=== PATIENT | male | born 1945 | race Caucasian/White ===

== ENCOUNTER → 2016-08-30 | Outpatient (CLI) | payer OTHER ==
[~2016-08-30] MED LIST: CHOL100010 PO; DOXY100C76 PO
== END | disposition home or self-care (01) ==
LOC: C.LABBC 14:39
PROVIDERS: ATTEND Family Medicine
DX: Z11.59 Encounter for screening for other viral diseases (principal); N40.1 Benign prostatic hyperplasia with lower urinary tract symptoms

== ENCOUNTER → 2017-01-11 | Outpatient (CLI) | payer OTHER | END | disposition home or self-care (01) | LOC: C.PATHSPEC 16:56 | PROVIDERS: ATTEND Plastic Surgery | DX: C44.702 Unspecified malignant neoplasm of skin of right lower limb, including hip (principal); L90.5 Scar conditions and fibrosis of skin; L82.1 Other seborrheic keratosis ==

== ENCOUNTER → 2017-06-04 | Outpatient (CLI) | payer OTHER ==
--- NOTE | 2017-06-04 16:12 | DIAGNOSTIC IMAGING REPORT ---
RIBS UNILATERAL WITH PA CHEST CLINICAL HISTORY: 71 years-old Male presenting with PLEURODYNIA. TECHNIQUE: PA view of the chest as well as frontal and oblique views of the right ribs were obtained. COMPARISON: None. FINDINGS: Atherosclerosis and mild tortuosity of the thoracic aorta. Cardiac silhouette top normal in size. Lungs and pleural spaces clear. Degenerative changes of the lower thoracic spine. Degenerative changes of the right acromioclavicular joint. No displaced rib fracture. No destructive osseous lesion. Upper abdomen within normal limits. IMPRESSION: 1. No acute cardiopulmonary disease. 2. No displaced right rib fracture. Electronically signed by: Gregory Mckoy M.D. 06/04/2017 4:11 PM Dictated Date/Time: 06/04/2017 4:09 PM
== END | disposition home or self-care (01) ==
LOC: C.RAD 15:49
PROVIDERS: ATTEND Nurse Practitioner
DX: R07.81 Pleurodynia (principal); Z91.048 Other nonmedicinal substance allergy status

== ENCOUNTER 2022-05-29 05:17 | Observation (INO) ==
--- NOTE | 2022-05-12 16:10 | PAT Medication Instructions ---
Medication Instructions Date of Service May 12, 2022 Home Medications montelukast 10 mg tablet (Singulair) 10 mg PO DAILY PRN ALLERGY RELIEF Continue as directed montelukast 10 mg tablet (Singulair) 10 mg PO DAILY PRN ALLERGY RELIEF (if needed) OTHERWISE NOTHING TO EAT OR DRINK AFTER MIDNIGHT Other Notes If you have any questions please call us at [phone] or [phone] or [phone] or [phone]
--- NOTE | 2022-05-18 11:12 | Anesthesiology Consultation ---
Date of Service May 18, 2022 Assessment & Plan (1) Encounter for pre-operative examination: - anesthesia concerns: Pt prefers to undergo general anesthesia due to concern for neuraxial anesthesia and potential difficulty in completion regarding age associated lumbar changes. He plans to further discuss this further with assigned anesthesiologist day of surgery. - no adhesive tape/bandaid d/t skin reaction: erythema, skin blistering. Marked on OR sheet as well. - Outpatient joint pathway: Per surgeon and patient, plan for outpatient joint program. Upon review of chart and case discussion with Dr. Tena, patient is NOT an acceptable candidate for Same Day Joint Program from anesthesia perspective, booking will need changed to overnight. Surgeon's office made aware, patient aware and denied additional questions or concerns. Chart Review Chart Review: Acceptable Risk for Surgery (pending booking change) and Patient seen in Pre Admission Testing Teaching & Discussion Pre-Anesthesia Teaching/Discussion Notes: Instructed NPO after midnight before surgery, except medications with 15 cc of water. Medication instructions provided according to the PAT guidelines. History Surgery Operation Date: 05/29/22 10:40 Proposed Procedures p Left Unicompartmental Versus - Darian Orozco MD s Total Knee Arthroplasty - Darian Orozco MD Height/Weight Height: 5 ft 11.5 in Weight: 83.007 kg Allergies Allergy/AdvReac Type Severity Reaction Status Date / Time adhesive Allergy Intermediate "INSTANT Verified 05/10/22 12:44 RASH" cat dander Allergy Intermediate FACE Verified 05/10/22 12:44 SWELLING Medications Home Medications Medication Instructions Recorded Confirmed Last Taken montelukast 10 mg tablet 10 mg PO DAILY PRN ALLERGY RELIEF 07/08/21 05/10/22 07/06/21 08:17 (Singulair) Past Medical History Medical History (Updated 05/18/22 @ 11:28 by Shannan Strong PA-C) BPH (benign prostatic hyperplasia) History of skin cancer Hx of deep venous thrombosis X 3 (RT CALF>RESULTED INJURY/KNEE SURGERY/LONG CAR RIDE) WAS ON XARELTO FOR ALL DX FOR 6 MONTHS, last 09/2020 Increased frequency of urination Migraine Sleep apnea NO DEVICE>COULD NOT TOLERATE CPAP Patient denies h/o stroke, seizures, heart attack, heart failure, DM, HTN, or blood transfusions. Exercise / Class Metabolic Activity II 4-5 Yardwork/Stairs/Walk up hill (denies chest discomfort or shortness of breath with 1 FOS) Past Family History Family History Father Acute myocardial infarction Bladder cancer Heart disease Unknown Hearing loss Grandmother No problems noted. Mother Hypertension Brother Heart disease Grandmother (Maternal) Diabetes Hypertension Stroke Denies family history of No family history of adverse response to anesthesia No family history of bleeding disorder Allergies Cancer Asthma Past Surgical History Surgical History H/O knee surgery RT SCOPE H/O right inguinal hernia repair (07/08/21) Incarcerated Right Inguinal Hernia Repair (Right) - Daniel Reyes MD, FACS 07/08/2021 Grade 1 view, MAC 3, ETT 7.5. 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 Physical Exam Vital Signs Vitals BP 112/64 P 78 TEMP 98.4 SP02 96% on RA RESP 18 Physical Full cervical extension range of motion without pain TMD < 3 finger breadths Mallampati Score 2 Dentition: intact, multiple caps/crowns; denies chipped or loose teeth, implants or bridges Lungs: normal respiratory effort. Good air movement, clear throughout to auscultation, no adventitious breath sounds Cardiac: regular rate and rhythm, no murmurs noted Carotid arteries: negative bruit bilat Lab Results Anesthesia Preop Results Results Anesthesia Widget: WBC 6.32 K/ul (4.8-10.8) 05/18/22 Hgb 15.2 g/dl (14.0-18.0) 05/18/22 Hct 43.4 % (40.1-51.0) 05/18/22 Plt 167 K/uL (130-400) 05/18/22 Na 140 mmol/L (136-145) 05/18/22 K 4.2 mmol/L (3.5-5.1) 05/18/22 Cl 109 mmol/L (98-107) H 05/18/22 CO2 27 mmol/L (21-32) 05/18/22 BUN 20 mg/dl (6-23) 05/18/22 Creat 0.81 mg/dl (0.6-1.4) 05/18/22 Glucose Level 86 mg/dl (70-99(Fasting)) 05/18/22 PT 11.0 Seconds (9.0-12.0) 05/18/22 PTT 24.5 Seconds (21.0-31.0) 05/18/22 INR 1.0 (0.9-1.1) 05/18/22 Blood Type A Negative 05/18/22 Antibody Screen NEGATIVE 05/18/22 Testing Electrocardiogram Date: 05/18/22 NSR, rate 60 bpm Chest X-Ray 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 Surgeon's office notified. Other Testing Abdomen pelvis CT 07/07/21 Small right inguinal hernia containing only fat. No evidence of ischemic changes. COVID-19 Risk Screen Screening Information COVID-19 Screen Date: 05/18/22 Exposure 21 Days Family/Household +COVID Last 21 Days: No Exposure 10 Days Any COVID Exposure Last 10 Days: No Symptoms Last 10 Days Experienced COVID Sx Last 10 Days: No + COVID 0-90 Days COVID + in Last 0-90 Days: No
[2022-05-29] MEDS ORDERED: ceFAZolin 2000MG 2,000 MG/15 ML SYR IV SCH (06:00)
[2022-05-29] MEDS ORDERED: CeleBREX 200 MG CAP PO SCH (06:00)
[2022-05-29] MEDS ORDERED: FAMOTIDINE 20 MG TAB PO SCH (06:00)
[2022-05-29] MEDS ORDERED: TRANEXAMIC ACID 1,000 MG **IV Intra-op IV SCH (06:00)
[2022-05-29] MEDS ORDERED: BUPIVACAINE LIPOSOME/PF 266 MG, BUPIVACAINE/EPINEPHRINE 50 ML, SODIUM CHLORIDE 0.9% 30 ... INFIL SCH (06:00)
[2022-05-29] MEDS ORDERED: METOCLOPRAMIDE HCL 10 MG TABLET PO SCH (06:00)
[2022-05-29] MEDS ORDERED: LR 60ML/HR IV SCH (06:00)
[2022-05-29] MEDS ORDERED: LR 500ML BOLUS, THEN 15ML/HR IV SCH (06:00)
[2022-05-29] MEDS ORDERED: ACETAMINOPHEN 500 MG TAB PO SCH (06:00)
[2022-05-29] MEDS ORDERED: ROPIVACAINE 0.5% 5 MG/ML 30 ML VIAL ONE (06:17)
[2022-05-29] MEDS ORDERED: BUPIVACAINE 0.5 % 5 MG/1 ML PF 10ML VIAL ONE (06:17)
[2022-05-29] MEDS ORDERED: BUPIVACAINE/EPINEPHRINE 0.25% 1:200,000 30 ML VIAL ONE (06:31)
[2022-05-29] MEDS ORDERED: BUPIVACAINE LIPOSOME 1.3% 266 MG/20 ML VIAL ONE (06:32)
[2022-05-29] MEDS ORDERED: SODIUM CHLORIDE 0.9% PF 50 ML VIAL ONE (06:32)
[2022-05-29] MEDS ORDERED: MIDAZOLAM HCL 1 MG/ML 2ML VIAL ONE (06:43)
[2022-05-29] MEDS ORDERED: ATROPINE SULFATE 0.1 MG/ML 10ML SYR IV PRN (06:48)
[2022-05-29] MEDS ORDERED: HYDROmorphone INJ 2 MG/ML SYR/VIAL IV PRN (06:48)
[2022-05-29] MEDS ORDERED: fentaNYL citrate 100 MCG/2 ML VIAL IV PRN (06:48)
[2022-05-29] MEDS ORDERED: ONDANSETRON INJ 2 MG/ML 2 ML VIAL IV PRN ×2 (06:48→09:52)
[2022-05-29] MEDS ORDERED: ePHEDrine sulfate 50 MG/ML AMP IV PRN (06:48)
--- NOTE | 2022-05-29 06:57 | History & Physical Bridge Note ---
Date of Service May 29, 2022 History & Physical Bridge Note I have examined the patient, reviewed the History & Physical and in the interval since the performance of the History & Physical I have noted the following changes of clinical significance: no changes noted
[2022-05-29] MEDS ORDERED: PROPOFOL IV EMULSION 10 MG/ML 20 ML VIAL IV ONE ×2 (07:25)
[2022-05-29] MEDS ORDERED: ePHEDrine sulfate 50 MG/ML SYR ONE (08:40)
--- NOTE | 2022-05-29 08:58 | Operative Report ---
PG Post Operative Report Pre & Post Diagnosis Operation Date: 05/29/22 07:00 Pre-Op Diagnosis: Left Knee Medial Compartment Arthritis Post-Op Diagnosis: Left Knee Medial Compartment Arthritis I identified the patient and participated in the time-out.: Yes Procedure Operation Date: 05/29/22 07:00 Actual Procedures p Left Unicompartmental Knee Arthroplasty(Left) - Darian Orozco MD Surgeon Darian Orozco MD Manager Non Profit Chris Camejo PA-C Estimated Blood Loss 25 Findings Consistent with Post-Op Diagnosis Operative findings revealed full-thickness cartilage loss of the medial femoral condyle. Here moderate-sized knee effusion. Slight varus deformity to his knee. The lateral and patellofemoral compartments look fairly normal. 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 He has been through extensive conservative treatment over the past 6 months which has not helped significantly. X-rays show some mild arthritis. MRI showed a significant bone marrow edema of the medial femoral condyle medial tibial plateau with full-thickness cartilage loss. Patient elected proceed with a partial knee replacement. Description of Procedure Operative implants consist of: 1 Biomet [place] size large medial femoral component. 2. Biomet [place] left medial size D tibial tray. 3. 4 mm mobile-bearing polyethylene insert. The patient was taken the operating, identified, placed on the operating table supine position but all contact areas were appropriately padded. IV antibiotics tried by anesthesia team. A spinal anesthetic and abductor canal block had provided in the holding area. Kaye catheter was placed in sterile fashion. Left atrium was then placed in the left lower extremities then prepped and draped in the usual sterile fashion. The left leg was elevated exsanguinated with use of an Esmarch in terms playset 300 mmHg. An anterior approach to the left knee was then performed through a longitudinal incision beginning at the superior pole of the patella and extending just medial to the tibial tubercle. Sharp dissection Through subcutaneous tissue down the extensor mechanism. A medial parapatellar arthrotomy incision was made. Some subperiosteal dissection was carried out medially. Great care was taken to protect the MCL ligament. Some osteophytes were taken off the intercondylar notch area. The femur was then sized to a size large. The large spoon was placed. The tibial cutting guide was placed and attached to the femoral spoon with a 4G clamp. The tibial cutting guide was pinned in place. The proximal tibial cut was made. The tibia was sized to a size D. I did place a 4 feeler gauge in there and with the the tibia and it was snug and fit appropriately. Attention drawn the femur. The distal femur was entered with a sharp drill. Intramedullary lenin was placed. The femoral template was placed with a setting of 4. It was hooked to the IM lenin. The holes for the femoral implant were created. The posterior cutting guide was placed. Posterior cut was made. The 0 spigot was placed in the distal femur was milled. I then trialed the knee and the 4 feeler gauge fit appropriately in flexion and I could not get the 1 gauge in extension. Therefore remove the implants, placed a 4 spigot and milled the distal femur. We trialed the knee again and the 4 insert fit appropriately in both flexion extension. We then went to repairing the bone surfaces. The distal femoral preparation guide was placed. The milling device was used to milled the anterior femur and the posterior osteophyte cutting guide was placed and the posterior osteophyte was removed. This was then removed and the cement drill was used to create some holes in the distal femur for cement interdigitation. The tibial tray was then pinned in place. The toothbrush blade was used to create the hole for the tibial keel. I then trialed the knee with the implants and therefore implant fit appropriate in flexion extension. We elect to place these implants. Nupathe all trial implants were removed. I irrigated the wound extensively. We did inject locally with total 100 cc of combination of 20 cc of Exparel, 30 cc normal saline, 50 cc of quarter percent Marcaine with epinephrine. Patient did receive 1 g of tranexamic acid. I irrigated the wound extensively. A single batch [place] G cement was mixed. A left medial size D tibial tray was then cemented in place followed by a large femoral component. The 4 feeler gauge was placed. The knee was brought out and about 30 degrees short of full extension until cement hardened. Final cement check was then performed. We trialed the knee 1 final time and then placed a 4 mm permanent insert. The knee tracked appropriately. Was appropriately balanced in flexion extension. Attention drawn toward closing. Wounds irrigated closed muscle irrigation and pulsatile lavage. The tourniquet was let down for turn time 60 minutes. Hemostasis reduced electrocautery. The wounds once again irrigated. The extensor mechanism then closed with #1 Vicryl suture in a [id number] fashion. Extensor mechanism checked found to be intact the subcutaneous tissue then closed with 2 Dexon suture in buried interrupted fashion skin was closed skin sophia. Leg was then cleaned and dried a sterile dressing was Xeroform, 4 x 4, sterile ABD pad, sterile cast padding, Dashawn bandage were applied. Patient then transferred to the recovery room in stable condition. Patient tolerated procedure well and there were no complications. Chris Camejo, my physician senior agricultural assistant, was present for the entire procedure. His assistance was essential and required for appropriate patient positioning, prepping and draping, surgical exposure, performing the technical details of the operation, placement the implants, closure of the wound, and placement of the sterile bandage. I attest to the content of the Intraoperative Record and any orders documented therein. Any exceptions are noted below.
--- NOTE | 2022-05-29 09:23 | XRay Report ---
LEFT KNEE 2 VIEWS History: Left unicondylar knee prosthesis. Degenerative arthritis. Postop. FINDINGS: The patient is status post a left medial unicondylar knee prosthesis. The hardware is intac t. No fracture or dislocation. Skin sophia are in place. IMPRESSION: Left medial unicondylar knee prosthesis. No evidence for hardware complication. ACT 112: Negative or not required by law. Electronically signed by: Andrew Cao M.D. 05/29/2022 9:22 AM
--- NOTE | 2022-05-29 09:51 | Anesthesiology Progress Note ---
Date of Service May 29, 2022 Anesthesia Post Procedure Vital Signs Vital Signs: Temp Pulse Pulse Resp BP BP Pulse Ox 05/29/22 09:30 60 12 97/58 L 95 05/29/22 09:10 65 20 101/62 93 05/29/22 09:20 36.3 C L 66 16 104/62 93 05/29/22 09:00 66 12 104/60 93 05/29/22 08:52 36.0 C L 70 10 L 100/60 94 05/29/22 05:52 36.8 C 65 16 126/80 94 O2 Del Method 05/29/22 09:30 Room Air 05/29/22 09:10 Room Air 05/29/22 09:20 Room Air 05/29/22 09:00 Room Air 05/29/22 08:52 Room Air 05/29/22 05:52 Room Air Transfer of Care Handoff Completed per policy Notes Mental Status: alert / awake / arousable and participated in evaluation Patient Amnestic to Procedure: Yes Nausea / Vomiting: adequately controlled Pain: adequately controlled Airway Patency, RR, SpO2: stable & adequate BP & HR: stable & adequate Hydration State: stable & adequate Neuraxial Anesthesia: was administered and sensory block is resolving Anesthetic Complications: no major complications apparent and Pt Satisfied with anesthetic care
[2022-05-29] MEDS ORDERED: MONTELUKAST SODIUM 10 MG TABLET PO PRN (09:52)
[2022-05-29] MEDS ORDERED: METOCLOPRAMIDE HCL INJ 5 MG/ML 2 ML VIAL IV PRN (09:52)
[2022-05-29] MEDS ORDERED: ALUMINUM/MAGNESIUM SUSP 30 ML UDC PO PRN (09:52)
[2022-05-29] MEDS ORDERED: bisacodyL 10 MG SUPP PR PRN (09:52)
[2022-05-29] MEDS ORDERED: MAGNESIUM HYDROXIDE SUSP 30 ML UDC PO PRN (09:52)
[2022-05-29] MEDS ORDERED: NALOXONE HCL 0.4 MG/1 ML VIAL/CARP IV PRN (09:52)
[2022-05-29] MEDS ORDERED: oxyCODONE HCL IR 5 MG TAB (IMMEDIATE RELEASE) PO PRN (09:52)
[2022-05-29] MEDS: SODIUM CHLORIDE 0.9% 1000ML 1,000 ML IV SCH ×2 (10:00→20:04)
[2022-05-29] MEDS: ASPIRIN 81 MG ECTAB PO SCH ×2 (11:08→20:04)
[2022-05-29] MEDS: DOCUSATE SODIUM 100 MG CAP PO SCH ×2 (11:08→20:05)
[2022-05-29] MEDS: MULTIVITAMIN TAB PO SCH (11:08)
[2022-05-29] MEDS: TAMSULOSIN HCL 0.4 MG CAP PO SCH (11:08)
[2022-05-29] MEDS: KETOROLAC TROMETHAMINE 15 MG/ML VIAL IV SCH ×3 (11:09→22:45)
[2022-05-29] MEDS ORDERED: TRANEXAMIC ACID / 0.7% NACL 1,000 MG/100 ML BAG IV SCH (15:00)
[2022-05-29] MEDS: ACETAMINOPHEN 500 MG TAB PO SCH ×2 (15:08→21:37)
[2022-05-29] MEDS: ceFAZolin 2000MG 2,000 MG/15 ML SYR IV SCH ×2 (15:16→22:45)
--- NOTE | 2022-05-29 17:00 | Progress Notes ---
DATE OF SERVICE: 05/29/2022. SUBJECTIVE: A 76-year-old gentleman, postoperative from a left partial knee replacement. He is doin g quite well. Says it is just sore. Pain is relatively well controlled. No chest pain or shortness of breath. Not feeling dizzy or lightheaded. OBJECTIVE: VITAL SIGNS: Temperature is 36.3. Vital signs are stable. GENERAL: Shows a pleasant middle-aged male. He is sitting up into his bedside chair, talking to his . He looks comfortable. EXTREMITIES: Examination of the left leg reveals the leg to be well aligned. Dressing is clean, dry and intact. He can dorsiflex and plantarflex his toes and foot appropriately. He is neurologically intact. X-RAYS: X-rays of the left knee from recovery room were reviewed. It shows a left partial knee repl acement. Components looked to be in good position. No signs of problems. ASSESSMENT: A 76-year-old male postop from a left partial knee replacement, doing pretty well. Pain is controlled. He is neurologically intact. PLAN: 1. DVT prophylaxis includes thigh-high TEDs, SCDs, and aspirin twice a day. 2. PT/OT, weightbear as tolerated. Left total knee protocol. 3. Pain control, doing okay with current pain regimen. 4. History of urinary retention. We have him on Fosamax. Kaye is in place. We will take that out tomorrow. 5. Disposition: Plan to discharge to home with some home health likely tomorrow after therapy. Job ID: [id number]
[2022-05-29] MEDS: ASCORBIC ACID 500 MG TAB PO SCH (17:29)
[2022-05-29] MEDS ORDERED: SENNA 8.6 MG TAB PO SCH (21:00)
[2022-05-29] MEDS: HYDROmorphone INJ 0.5 MG/0.5 ML SYR IV PRN (22:46)
[2022-05-30] MEDS: HYDROmorphone INJ 0.5 MG/0.5 ML SYR IV PRN (02:29)
[2022-05-30] MEDS: KETOROLAC TROMETHAMINE 15 MG/ML VIAL IV SCH ×2 (04:54→09:58)
[2022-05-30] MEDS: SODIUM CHLORIDE 0.9% 1000ML 1,000 ML IV SCH (05:00)
[2022-05-30] MEDS: ACETAMINOPHEN 500 MG TAB PO SCH (05:41)
[2022-05-30] MEDS ORDERED: dexAMETHasone 10 MG in SYRINGE 0 ML IV SCH (08:00)
[2022-05-30] MEDS: ASCORBIC ACID 500 MG TAB PO SCH (08:46)
[2022-05-30] MEDS: TAMSULOSIN HCL 0.4 MG CAP PO SCH (08:46)
[2022-05-30] MEDS: MULTIVITAMIN TAB PO SCH (08:46)
[2022-05-30] MEDS: DOCUSATE SODIUM 100 MG CAP PO SCH (08:46)
[2022-05-30] MEDS: ASPIRIN 81 MG ECTAB PO SCH (08:46)
--- NOTE | 2022-05-30 11:09 | Progress Notes ---
DATE OF SERVICE: 05/30/2022 SUBJECTIVE: A 76-year-old male postoperative day 1 from a left partial knee replacement. He is doin g pretty well. Pain is controlled. He has been up walking. No chest pain or shortness of breath. Not feeling dizzy or lightheaded. VITAL SIGNS: Temperature 37.0. Vital signs are stable. PHYSICAL EXAMINATION: GENERAL: Physical exam shows a pleasant middle-aged male. He is sitting up on his bed this morning and looks quite comfortable. EXTREMITIES: Examination of the left leg reveals the dressing to be clean, dry, and intact. Leg is well aligned. He can dorsiflex and plantarflex his foot appropriately. He can do a good straight le g raise. ASSESSMENT: A 76-year-old male postoperative day 1 from a left partial knee replacement, doing well. Pain is controlled. He is neurologically intact. PLAN: 1. DVT prophylaxis to include thigh-high TEDs, SCDs, and aspirin for a month. 2. PT/OT and weightbear as tolerated. Left total knee protocol. 3. Pain control: Doing okay with current pain regimen. 4. Kaye catheter. We will remove that today and get him voiding on his own before discharge. 5. Disposition: Plan to discharge to home with some home health once through therapy and voiding bonny briggs. Job ID: [id number]
--- NOTE | 2022-06-04 10:26 | Discharge Summary ---
Date of Service June 04, 2022 Discharge Data Procedures Performed Operation Date: 05/29/22 07:00 Actual Procedures p Left Unicompartmental Knee Arthroplasty(Left) - Darian Orozco MD Hospital Course (1) Status post left partial knee replacement: This is a 76 year old patient admitted on 05/29/22 and underwent partial knee replacement. He tolerated the procedure well and there were no complications. Transferred to the PACU post op and later to the orthopedic floor for further care. He was given ancef for antibiotic prophylaxis. He was also given JEANETTE stockings, SCDs, and aspirin for DVT prophylaxis. Hemoglobin, hematocrit, and vital signs were monitored during his hospital stay and remained stable. Did not require any blood transfusions. There were no complications during his hospital stay. By post op day #1 the patient was tolerating a regular diet, pain was reasonably controlled with oral pain medicine, and he was participating in physical therapy. On post op day #1 the patient was discharged home and set up with home health care. He was given printed discharge instructions including prescriptions for extra strength tylenol, aspirin, ketorolac, zofran, and flomax. Continue physical therapy, weight bearing as tolerated. Continue JEANETTE stockings. Follow up approximately 2 weeks post op or sooner if there are problems or concerns. Coding Level of Care Code None Diagnoses Status post left partial knee replacement Z96.652
== END 2022-05-30 13:10 | disposition home health service (06) ==
LOC: ASU 05:17 → 3E 05:17

== ENCOUNTER 2023-10-16 10:41 | Observation (INO) ==
--- NOTE | 2023-09-26 15:05 | Anesthesiology Consultation ---
Date of Service September 26, 2023 Assessment & Plan (1) Encounter for pre-operative examination: Chart Review Chart Review: Acceptable Risk for Surgery and Patient NOT seen in Pre Admission Testing Infectious Disease screening: Per PAT nursing assessment on 09/26/23, No known infectious disease contacts in past 10 days or current infectious disease symptoms. No recent travel outside the country. History Surgery Operation Date: 10/16/23 07:30 Proposed Procedures p TURP (Transurethral Resection of Prostate) - Akira Galloway MD Height/Weight Height: 5 ft 11.5 in Weight: 84.368 kg Allergies Allergy/AdvReac Type Severity Reaction Status Date / Time adhesive Allergy Intermediate "INSTANT Verified 09/26/23 13:46 RASH" cat dander Allergy Intermediate FACE Verified 09/26/23 13:46 SWELLING chlorhexidine Allergy Intermediate Rash Verified 09/26/23 13:46 Medications Home Medications Medication Instructions Recorded Confirmed Last Taken naproxen sodium 220 mg tablet 220 mg PO BID 04/11/23 09/26/23 05/01/23 18:00 loratadine 10 mg tablet (Claritin) 10 mg PO BID 09/26/23 09/26/23 Unknown Past Medical History Medical History (Updated 09/26/23 @ 14:57 by Ca Eng PA-C) Acquired deviated nasal septum Allergic rhinitis Arthritis BPH (benign prostatic hyperplasia) with obstruction Hx of deep venous thrombosis (09/2020) X 3 (RT CALF>RESULTED INJURY/KNEE SURGERY/LONG CAR RIDE) WAS ON XARELTO FOR ALL DX FOR 6 MONTHS, last 09/2020 Hx of migraines Hx of rosacea Increased frequency of urination PAC (premature atrial contraction) (2019) Followed with Dr. Nguyen x 1, no current issues Sleep apnea stopped using CPAP in 2020 Past Family History Family History Father Acute myocardial infarction Bladder cancer Heart disease Unknown Hearing loss Grandmother No problems noted. Mother Hypertension Brother Heart disease Grandmother (Maternal) Diabetes Hypertension Stroke Denies family history of No family history of adverse response to anesthesia No family history of bleeding disorder Allergies Cancer Asthma Past Surgical History Surgical History (Updated 09/26/23 @ 14:57 by Ca Eng PA-C) H/O knee surgery right arthroscopic H/O right inguinal hernia repair (07/08/21) Incarcerated Right Inguinal Hernia Repair H/O: vasectomy History of anesthesia reaction URINARY RETENTION WITH INGUINAL SURGERY History of ankle surgery rt ganglion cyst History of bilateral carpal tunnel release (05/2023) History of colonoscopy Hx of cystoscopy (06/2023) Hx of hand surgery left 3rd finger trigger release and L CTR 05/04/23: MAC without issue Hx of squamous cell carcinoma excision right lower leg x2 Status post left partial knee replacement (2022) [place] teeth removed Social History Smoking Status: Never smoker Do You Dip or Chew Tobacco: No Hx Alcohol Use: Yes Alcohol type: wine alcohol intake frequency: a few times a month Hx Substance Use: No substance use type: does not use Lab Results Anesthesia Preop Results Results Anesthesia Widget: WBC 5.07 K/ul (4.8-10.8) 09/20/23 Hgb 14.9 g/dl (14.0-18.0) 09/20/23 Hct 42.8 % (42.0-52.0) 09/20/23 Plt 140 K/uL (130-400) 09/20/23 Na 139 mmol/L (136-145) 09/20/23 K 4.2 mmol/L (3.5-5.1) 09/20/23 Cl 109 mmol/L (98-107) H 09/20/23 CO2 25 mmol/L (21-32) 09/20/23 BUN 24 mg/dl (6-23) H 09/20/23 Creat 0.81 mg/dl (0.6-1.4) 09/20/23 Glucose Level 130 mg/dl (70-99(Fasting)) H 09/20/23 Testing Electrocardiogram Date: 09/20/23 Findings: + NSR @ (63bpm) iRBBB. NS TWA inferior leads. Chest X-Ray Date: 09/20/23 Findings: + NAD
[2023-10-16] MEDS: LR 15ML/HR IV SCH (11:19)
--- NOTE | 2023-10-16 11:52 | History & Physical Bridge Note ---
Date of Service October 16, 2023 History & Physical Bridge Note I have examined the patient, reviewed the History & Physical and in the interval since the performance of the History & Physical I have noted the following changes of clinical significance: no changes noted
[2023-10-16] MEDS ORDERED: fentaNYL citrate PF 100 MCG/2 ML VIAL ONE ×2 (12:09→12:34)
[2023-10-16] MEDS ORDERED: LIDOCAINE 2% 2 ML VIAL/AMP(20MG/ML) INFIL ONE (12:14)
[2023-10-16] MEDS ORDERED: ONDANSETRON INJ 2 MG/ML 2 ML VIAL ONE (12:14)
[2023-10-16] MEDS ORDERED: DEXAMETHASONE SOD INJ 4 MG/ML VIAL ONE (12:14)
[2023-10-16] MEDS ORDERED: PROPOFOL IV EMULSION 10 MG/ML 20 ML VIAL IV ONE (12:14)
[2023-10-16] MEDS ORDERED: GLYCOPYRROLATE 0.2 MG/ML VIAL ONE (12:24)
[2023-10-16] MEDS ORDERED: ePHEDrine sulfate 50 MG/5 ML SYR ONE (12:25)
--- NOTE | 2023-10-16 13:12 | Operative Report ---
PG Post Operative Report Pre & Post Diagnosis Operation Date: 10/16/23 12:15 Pre-Op Diagnosis: Benign Prostatic Hyperplasia Post-Op Diagnosis: Benign Prostatic Hyperplasia I identified the patient and participated in the time-out.: Yes Procedure Operation Date: 10/16/23 12:15 Actual Procedures p TURP (Transurethral Resection of Prostate)(Not Applicable) - Akira Galloway MD Surgeon Akira Galloway MD Paper Mill Manager none Estimated Blood Loss 5 Findings Consistent with Post-Op Diagnosis Specimens Prostate chips Description of Procedure The patient was identified in the preoperative holding area, appropriate informed consents were reviewed and completed and the patient was transferred to the operative suite. Upon arrival, appropriate antibiotics and anesthesia were administered and the patient was placed in dorsal lithotomy position and prepped and draped in sterile fashion. We in the case I passed a 26 Italian resectoscope with 30 degree lens and visual roofing machine operator. Inspection revealed a healthy-appearing urethra and an enlarged prostate with lateral lobe obstruction as well as an intravesical median lobe and some generalized intravesical intrusion. The bladder itself was healthy with some trabeculation. Ureteral orifices were identified in orthotopic position. There were no tumors or other abnormalities of the mucosal surface. Following my inspection I utilized a loop electrode to begin resection of the intravesical median lobe. This greatly improved the appearance of the prostate but I continued to resect the left lateral lobe followed by the right lateral lobe and some posterior tissue. I concluded my resection by trimming some apical tissue. There was some redundancy from the anterior aspect of the prostate that required resection. I utilized a button electrode to smooth the resection and obtained meticulous hemostasis. All chips were irrigated out of the bladder. A 22 Italian 30 cc Kaye catheter was inserted without difficulty and the case was concluded. There were no complications. I attest to the content of the Intraoperative Record and any orders documented therein. Any exceptions are noted below.
--- NOTE | 2023-10-16 13:48 | Anesthesiology Progress Note ---
Date of Service October 16, 2023 Anesthesia Post Procedure Vital Signs Vital Signs: Temp Pulse Pulse Resp BP Pulse Ox O2 Del Method 10/16/23 13:45 57 L 12 109/64 95 Room Air 10/16/23 13:35 55 L 13 111/70 94 Room Air 10/16/23 13:25 70 12 122/70 98 Oxymask 10/16/23 13:19 36.4 C L 56 L 11 L 123/80 98 Oxymask 10/16/23 11:04 36.8 C 66 20 136/80 96 Room Air O2 Flow Rate 10/16/23 13:45 10/16/23 13:35 10/16/23 13:25 5 10/16/23 13:19 5 10/16/23 11:04 Pain Intensity Bilateral Knee: Pain Intensity: 1 Transfer of Care Handoff Completed per policy Notes Mental Status: alert / awake / arousable Patient Amnestic to Procedure: Yes Nausea / Vomiting: adequately controlled Pain: adequately controlled Airway Patency, RR, SpO2: stable & adequate BP & HR: stable & adequate Hydration State: stable & adequate Anesthetic Complications: no major complications apparent
[2023-10-16] MEDS ORDERED: ACETAMINOPHEN 325 MG TAB PO PRN (15:56)
[2023-10-16] MEDS: CIPROFLOXACIN / D5W 400 MG/200 ML BAG IV SCH (16:00)
[2023-10-16] MEDS: SODIUM CHLORIDE 0.9% 1,000 ML IV SCH (16:04)
--- OUTSIDE RECORDS SUMMARY | 2023-10-16 17:49 | External Medical Summary | Continuity of Care Document ---
Author Name Unknown Organization [address] Address [address] [place], [place] [id number] Care Team Providers Care Three Knife Trimmer Name Role Phone Atiya Muniz Primary Care Physician [phone] Encounter [facility] [id number] Date(s): 10/10/23 - 10/10/[address] [address] [phone] Encounter Diagnosis Preop examination(Discharge Diagnosis) - 10/11/23 Discharge Disposition: Home or Self Care Attending Physician: DURGA Lujan Danielle B Allergies, Adverse Reactions, Alerts Substance Criticality Severity Reaction Reaction Severity Status Betadine rash Active Adhesive bandage swelling and itching Active Cats facial swelling Acti ve Assessment and Plan Extracted from: Title:Office Visit Note Author:DURGA Lujan Dan ielle B Date:10/10/23 1.Preop examination Patient is at lowrisk for intraoperative complications per Tolu criteria.Notify provider of any questions or concerns. Preoperative paperwork completed and will be faxed. Patient verbalizes understanding regarding plan of care and all questions answered. Based on risk assessment, do not foresee any major medical concerns to prevent patient from proceed with proposed procedure. Immunizations Given and Recorded Vaccine Date Status Refusal Reason influenza virus vaccine, inactivated 03/26/23 Luis A rded influenza virus vaccine, inactivated 03/14/22 Luis A rded influenza virus vaccine, inactivated 04/05/21 Luis A rded influenza virus vaccine, inactivated 03/19/19 Luis A rded influenza virus vaccine, inactivated 03/29/17 Give n tetanus/diphtheria/pertuss, acel (Tdap) 05/07/19 R ecorded zoster vaccine, inactivated 02/14/18 Recorded zoster vaccine, inactivated 11/23/17 Recorded pneumococcal 23-valent vaccine 02/14/17 Given pneumococcal 23-valent vaccine 04/30/03 Recorded pneumococcal 13-valent vaccine 08/28/16 Recorded zoster vaccine live 04/30/14 Recorded diphtheria-tetanus toxoids, DT (Ped) 04/30/12 Lusi A rded hepatitis B adult vaccine 04/30/75 Recorded hepatitis A adult vaccine 04/30/75 Recorded Medications loratadine 10 mg oral capsule Start: 05/03/23 11:01:00 AM EST, 1 cap, PO, Daily Start Date: 05/03/23 Stop Date: 06/02/23 Status: Ordered naproxen sodium 220 mg oral capsule Start: 05/03/23 10:30:00 AM EST, 1 cap, PO, bid Start Date: 05/03/23 Status: Ordered Singulair Start: 02/08/21 10:42:00 AM EDT Start Date: 02/08/21 Status: Ordered valACYclovir 500 mg oral tablet Start: 02/14/17 1:52:00 PM EDT, See Instructions, 1 tab tid prn as needed Start Date: 02/14/17 Status: Ordered Mental Status 10/10/23 Barriers to Learning one year None evide nt Mandatory Health Literacy Documentation Yes Health Literacy Communication Barriers N ever Primary Language Ukrainian Problem List Condition Confirmation Course Effective Dates Status Health St atus Informant Accidental fall Confirmed Active Dorsal wrist ganglion Confirmed Active Hamstring strain Confirmed Active History of DVT of lower extremity Confirmed Active History of squamous cell carcinoma of skin Confirmed Active Inflamed seborrheic keratosis Confirmed Active Classic migraine with aura Confirmed Active 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 recommend re-evaluation in 2-3 years. 2rigth 3-5th toes chronic after foot surgery 3CPAP cause dental problem. only uses when travels. 4CPAP 4-6cm H2O pressure 5BPH. sees Dr. Galloway Diagnosis Diagnosis Type Effective Dates Health Status Clinical Service Informant Preop examination Discharge Diagnosis 10/11/23 Non-Specified Procedures Procedure Date Related Diagnosis Body Site Status Carpal tunnel syndrome of left wrist 1 05/02/23 Completed Carpal tunnel syndrome of right wrist 04/18/23 Completed Doppler ultrasonography- Lef t Lower Extremity 2 07/16/22 Completed Arthroplasty of knee left 05/29/22 Completed Shave biopsy of skin lesion 01/04/22 Completed Hernia repair 3 07/08/21 Completed Repair of incarcerated ingui nal hernia Right Indirect 07/08/21 Completed Shave biopsy and cauterization of skin 06/17/20 Completed Shave biopsy and cauterization of skin 12/08/19 Completed X-ray of lumbar spine 4 05/19/19 C ompleted Shave biopsy and cauterisati on of skin 5 05/01/19 Completed Electrodesiccation with curettage 6 03/14/18 Completed Shave biopsy and cauterizati on of skin 7 02/27/18 Completed X-ray of rib & PA chest 8 06/04/17 Completed Colonoscopy 9 2014 Completed Ganglion excision, right ankle 2013 Completed Chalazion excision, right up per eyelid 2002 Completed Excision of mole x2 10 Co mpleted Posterior, partial menisecto my, right knee 2016 Completed Root canal of tooth 11 Co mpleted Vasectomy 12 Completed 13rd finger tendon release 2No DVT within the left lower extremity 3right inguinal, strangulated hernia repair 4IMPRESSION: Daka-rw-hzuluptz degenerative changes within the lumbar spine which has slightly progressed. No fractures. 5Right Lower Calf Left Inner Thigh 6right knee 7right inner knee 8Impression: No acute cardiopulmonary disease No displaced right rib fracture. 9as reported by patient - results: normal recommend screening in 10 years. 10no date 11Multiple root canals in the last 4 years. [id number] Vital Signs Most recent to oldest [Reference Range]: 1 Patient Weight 87.5 kg (10/10/23 2:58 PM) Temperature [36.5-37.9 DegC] 36.9 DegC (10/10/23 2:58 PM) Heart Rate 60 bpm (10/10/23 2:58 PM) Respiratory Rate 18 br/min (10/10/23 2:58 PM) Blood Pressure 118/70mmHg (10/10/23 2:58 PM) Cuff Pulse Pressure 48 mmHg (10/10/23 2:58 PM) Social History Social History Type Response Smoking Status Never smoked cigaret katt Sex Male [facility] Outpt Note * DURGA Lujan Danielle B: PERFORM Event Display: [facility] Outpt Note Authored Date: [id number] Chief Complaint Pre Op cataract surgery for 10/23/23. Fill out forms History of Present Illness Patient is a 78 year old male here for pre op clearance prior to cataract surgery with Dr. Hdez at [facility]. Scheduled to have left eye done 10/22 and right eye done 10/29. Patient states he has had multiple ortho surgeries that required general anesthesia and colonoscopies with ground water pump installer sedation without any difficulty with anesthesia. No malignant hyperthermia, nausea, vomiting, difficulty waking up. Patient is a never smoker. No family hx ofsudden cardiac . He has PMH of JUS but does notuse CPAP as it has caused two cavities. Very active; bicycles 40 minutes every 3rd day while days 1and 2 are a combination of upper and lower body weight lifting. Denies chest pain, shortness of breath, activity intolerance. Review of Systems Negative unless stated in HPI. Physical Exam Vitals & Measurements T:36.9C HR:60(Monitored) RR:18 BP:118/70 SpO2:97% WT:87.5kg WT:87.500kg(Dosing) PHQ2 Data(Data Documented on:10/10/2023 14:58) Emotional health assessment NEGATIVE CONSTITUTIONAL: Well-developed, well nourished. No acute distress. NEUROLOGICAL: Patient alert, orientated, memory intact. Gait steady. HEENT: Head is normocephalic. Eyes- symmetrical, no erythema or discharge. Nares- are patent bilaterally, no discharge noted. Oral- Oropharynx is clear, no erythema or exudate. Oral mucosa pink and moist. Lips are pink and moist, no lesions. Neck- Supple, no lymphadenopathy. LUNGS: Respirations even and unlabored, chest expansion symmetrical. Lung sounds clear in all lobes, no wheezing, crackles, or adventitious breath sounds. HEART: Rate and rhythm regular. No cardiac murmur, click, or rub noted. ABDOMEN: Soft, nontender. Bowel sounds active in all four quadrants. MUSCULOSKELETAL/EXTREMITIES: Extremities are intact, no redness or edema noted of upper or lower extremity. INTEGUMENTARY: Skin dry, warm to touch. No rash, wounds, lesions noted on visible skin. PSYCHOSOCIAL: Calm and cooperative, interacts appropriately withstaff. Assessment/Plan 1.Preop examination Patient is at lowrisk for intraoperative complications per Tolu criteria.Notify provider of any questions or concerns. Preoperative paperwork completed and will be faxed. Patient verbalizes understanding regarding plan of care and all questions answered. Based on risk assessment, do not foresee any major medical concerns to prevent patient from proceedwith proposed procedure. 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 Dorsal wrist ganglion Hamstring strain History of DVT of lower extremity History of squamous cell carcinoma of skin Inflamed seborrheic keratosis Neoplasm of uncertain behavior Numbness of toes JUS (obstructive sleep apnea) Pigmented purpuric dermatosis Rosacea Schamberg's purpura Spermatocele Urinary urgency Varicose veins of legs Resolved Acute pain of right thigh PAC (premature atrial contraction) Skin tag Procedure/Surgical History Carpal tunnel syndrome of left wrist| Service Date: 4Carpal tunnel syndrome of rightwrist| Service Date: 3Doppler ultrasonography- Left Lower Extremity| Service Date: 3Arthroplasty of knee left| Service Date: 05/29/2022Shave biopsy of skin lesion| Service D ate: 01/04/2022Hernia repair| Service Date: 2Repair of incarcerated inguinal hernia Right Indirect| Service Date: 2Shave biopsy and cauterization of skin| Service Date: 1Shave biopsy and cauterization of skin| Service Date: 12/08/2019X-ray of lumbar spine| Service Date: 05/19/2019Shave biopsy and cauterisation of skin| Service Date: 05/01/2019Electrodesiccation with curettage| Service Date: 03/14/2018Shave biopsy and cauterization of skin| Service Date: 02/27/2018 X-ray of rib & PA chest| Service Date: 06/04/2017 Colonoscopy| Service Date: 2014Ganglion excision, right ankle| Service Date: 2013Root canal of toothPosterior, partial menisectomy, right knee 2016Chalazion excision, right upper eyelid 2003Excision of mole [id number] Medications loratadine(loratadine 10 mg oral capsule), 10 mg= 1 cap, PO, Daily montelukast(Singulair) naproxen(naproxen sodium 220 mg oral capsule), 220 mg= 1 cap, PO, bid valACYclovir(valACYclovir 500 mg oral tablet), See Instructions Allergies Adhesive bandageswelling and itching Betadinerash Catsfacial swelling Social History Smoking Status Never smoked cigarettes Alcohol Use:Current Type:Beer, Wine Frequency:1-2 times per month Employment/School Status:Retired Exercise Duration (average number of minutes):40 Times per week:5-6 times/week Exercise type:Aerobics, Weight lifting, biking Home/Environment Lives with:Spouse Substance Abuse - Denies Substance Abuse Tobacco - Denies Tobacco Use Family History Alcoholism: MGF. Aneurysm: Maternal Uncle. COPD: Father and Maternal Uncle. Congestive heart failure...: MGF and MGM. Diabetes mellitus: MGM. Heart attack: Father and Brother. Hypertension: MGM. MT - Myocardial infarction: Maternal Uncle. Obesity: MGM. Osteoporosis: PGM. Paget's disease of bone: MGM. Respiratory disease: Father. Health Status Family Member(s) Immunizations Vaccine Date Status influenza virus vaccine, inactivated 03/26/2023 Recorded influenza virus vaccine, inactivated 03/14/2022 Recorded influenza virus vaccine, inactivated 04/05/2021 Recorded tetanus/diphtheria/pertuss, acel (Tdap) 05/07/2019 Recorded influenza virus vaccine, inactivated 03/19/2019 Recorded zoster vaccine, inactivated 02/14/2018 Recorded zoster vaccine, inactivated 11/23/2017 Recorded influenza virus vaccine, inactivated 03/29/2017 Given pneumococcal 23-valent vaccine 02/14/2017 Given pneumococcal 13-valent vaccine 08/2016 Recorded zoster vaccine live 2014 Recorded diphtheria-tetanus toxoids, DT (Ped) 2012 Recorded pneumococcal 23-valent vaccine 2003 Recorded hepatitis B adult vaccine 1975 Recorded hepatitis A adult vaccine 1975 Recorded Recommendations Health Maintenance Pending(in the next year) OverDue Medicare Annual Wellness Visit due03/29/23and every 1year Due Adult COVID-19 Vaccination due10/11/23Unknown Frequency Adult Social Determinants of Health Screening due10/11/23Unknown Frequency Hepatitis C Screening due10/11/23One-time only Lipid Screening due10/11/23Unknown Frequency Due In Future Adult Influenza Vaccine not due until10/28/23and every 1year Satisfied(in the past 1 year) Satisfied Adult Influenza Vaccine on03/26/23.Satisfied by GREGG Blackwell Jenna Body Mass Index on05/03/23.Satisfied by GARRET Florez Bobbi Electronic Signature on File Electronically Reviewed/Signed by: DURGA Montelongo Author Signature Dt/Tm:10/11/2023 08:31 AM Family Medicine DBN Patient Care team information Care Team Personnel Name: DURGA Arguelles Tara Position: Nurse Pract - Family Med Member Role: Lifetime Relationship Address: Address: [address] [place] [address] [place] Name: MD Flavio, Atiya Atkinson Position: Physician - Family Med Member Role: Primary Care Provider Address: Address: [address] [place] [address] [place] Name: APRIL Leonard Lynn Position: Physician Barmaid Exempt - [facility] Surg Member Role: Lifetime Relationship Address: Address: [address] [place] [address] [place] Name: MD Rosales Juan Position: Physician - Family Med Member Role: Lifetime Relationship Address: Address: [address] [place] [address] Care Team Related Persons Name: RAI RICKS Address: [address] [id number]"
[2023-10-16] MEDS: NAPROXEN 250 MG TAB PO SCH (18:26)
[2023-10-16] MEDS: PHENAZOPYRIDINE HCL 200 MG TAB PO PRN (19:55)
[2023-10-16] MEDS: COUGH DROP (SUGAR FREE) LOZ 24 LOZ/1 BOX BUCCAL PRN (20:15)
[2023-10-16] MEDS: LORATADINE 10 MG TAB PO SCH (20:16)
--- NOTE | 2023-10-17 08:30 | Urology Progress Note ---
Date of Service October 17, 2023 Assessment & Plan (1) Benign prostatic hyperplasia with urinary obstruction: Plan Postop day #1 status post TURP Catheter removal this morning and discharged home Admission and Anticipated Discharge Date Admission Date: October 16, 2023 Subjective Postop day #1 status post TURP Doing great overall No discomfort Good urine output Physical Exam Physical Exam: Urine clear/minimally blood-tinged Results & Data Vital Signs (Past 12 Hours) Vital Signs Temp Pulse Resp BP Pulse Ox O2 Del Method 10/17/23 08:01 36.6 C 54 L 16 116/69 93 Room Air 10/17/23 04:07 36.8 C 62 17 110/65 94 Room Air 10/16/23 23:21 37.0 C 70 17 106/62 96 Room Air PG Care Time/CCT Total # of Minutes Spent Total Time Spent with Patient: Total time spent is greater than 50% in coordination of care (as documented) at patient's floor/unit and/or counseling patient: Coding Level of Care Code None Diagnoses Benign prostatic hyperplasia with urinary obstruction N40.1; N13.8
--- NOTE | 2023-10-17 09:52 | Discharge Summary ---
Date of Service October 17, 2023 Admission HPI Per Admitting Provider Patient with benign prostatic hyperplasia with urinary obstruction here for transurethral resection of prostate. Admission Exam Per Admitting Provider Constitutional well developed and well nourished; no acute distress and not ill appearing Eyes no eyelid abnormality ENMT Ears: no external ear abnormality Neck normal visual inspection and trachea midline Respiratory normal respiratory effort and able to speak in complete sentences; no respiratory distress and no audible wheezes Gastrointestinal (Abdomen) Inspection/Auscultation: abdomen normal to inspection; abdomen not distended Musculoskeletal Head/Neck/Chest: normocephalic and head atraumatic Moves all extremities without difficulty. Skin No visible rashes, lesions, or wounds noted. Neurologic moves all extremities and awake Psychiatric Orientation: alert, oriented x 3 and cooperative Affect: euthymic affect Principal Diagnosis Benign prostatic hyperplasia with urinary obstruction Discharge Exam Constitutional well developed and well nourished; no acute distress Respiratory normal respiratory effort; no respiratory distress and no labored breathing Gastrointestinal (Abdomen) Inspection/Auscultation: abdomen normal to inspection Musculoskeletal Head/Neck/Chest: normocephalic Neurologic moves all extremities and awake Psychiatric Orientation: alert and oriented x 3 Discharge Data Allergies Allergy/AdvReac Type Severity Reaction Status Date / Time adhesive Allergy Intermediate "INSTANT Verified 10/16/23 11:09 RASH" cat dander Allergy Intermediate FACE Verified 10/16/23 11:09 SWELLING chlorhexidine Allergy Intermediate Rash Verified 10/16/23 11:09 Procedures Performed Operation Date: 10/16/23 12:15 Actual Procedures p TURP (Transurethral Resection of Prostate)(Not Applicable) - Akira Galloway MD Hospital Course (1) Benign prostatic hyperplasia with urinary obstruction: Plan Postop day #1 status post TURP Catheter removal this morning and discharged home Patient passed formal voiding trial this morning Patient is ready for dischargeorders placed Expected clinical course reviewed, all questions answered Patient will be called to arrange follow-up appointments Total Time Total Time Spent Total Time Spent (In Minutes): 29 Discharge Plan Discharge Items Patient Disposition: Home - Self-Care Reason For Visit: Benign Prostatic Hyperplasia with Lower Urinary Tr Discharge Diagnosis: Benign prostatic hyperplasia with lower urinary tract symptoms Activity: Per Instructions section Lifting: Gradually increase as tolerated Bathing: No limitations Sexual Activity: When tolerated Exercise/Sports: Gradually increase as tolerated Driving/Machine Use: Resume 1 day after discharge Non-emergency contact: Surgeon and Urologist Call non-emergency contact if: your pain is worsening, you have a fever and your temperature is above 101 Follow-up/Referrals: Jesse Rosales MD [Primary Care Provider] - 10/25/23 10:05 am (appt made with dr carlin- [phone] arrival time) Diet: Regular Addtl Attending Provider Instructions: Please take all medications as prescribed and keep all follow-ups as scheduled. Please call our office at [phone] with any questions, concerns or need to reschedule appointments for any reason. We are happy to assist you. Tips for your recovery at home: Dont be alarmed by brownish or reddish blood or clots in your urine. This is a result of the procedure. This may occur off and on for weeks to months after the procedure but should continue to improve. Drink plenty of fluids during the day (enough to keep your urine very light colored). This will help keep a healthy flow of urine. Do not lift >25 lbs until your followup Avoid constipation. Please use a stool softener (Colace) for the first two weeks after your procedure Be sure to finish the antibiotics as prescribed. If you go home with a catheter, please wash tubing where it enters your body twice daily with mild soap (Dove or Dial). Once your catheter is removed, expect some blood in your urine and some burning when you urinate. You should have an appointment to have this removed, if you do not please call our office to arrange. Pending Studies at Discharge: Yes Stand-Alone Forms: My [facility] [employer], Smoking Cessation Medications and DC Order Prescriptions: New ciprofloxacin HCl 500 mg tablet 500 mg PO BID Qty: 6 0RF Continued naproxen sodium 220 mg tablet 220 mg PO BID loratadine [Claritin] 10 mg Tablet 10 mg PO BID Discharge Orders: Discharge Order (Routine); Ordered 10/17/23 Ordered By: Kayli Hernandez Admission Data Admit Date/Time: 10/16/23 13:10 Attending Provider: Akira Galloway Admit Provider: Akira Galloway Primary Care Provider: Jesse Rosales Other Interventions: Discharge Summary Assessment (RN) Last Done: 10/17/23 09:53 Coding Level of Care Code 47025 IN/OBS DISCH 30 MIN/LESS Diagnoses Benign prostatic hyperplasia with urinary obstruction N40.1; N13.8
== END 2023-10-17 10:44 | disposition home or self-care (01) ==
LOC: ASU 10:41 → PACUINP 10:41 → 3W 15:51